=== PATIENT | male | born 1945 | race Caucasian/White ===

== ENCOUNTER 2022-07-08 06:53 | Emergency (ER) | payer OTHER, MEDICARE ==
[2022-07-08] MEDS ORDERED: Take Home: Ondansetron 4 MG Tab.DIS, 5 Tab Pack ONE (19:13)
[2022-07-08] MEDS ORDERED: Meclizine 25 MG Tab ONE (19:13)
[2022-07-08] MEDS ORDERED: LORazepam 2 MG/ML SDV ONE (19:13)
[2022-07-08] MEDS ORDERED: Ondansetron 4 MG/2 ML SDV ONE (19:13)
[2022-08-01 12:50] LABS: ANION GAP 13.4 mmol/L (5-15); CHLORIDE,CL 104 mmol/L (98-107); ESTIMATED GFR 92 mL/min (>=60); SODIUM,NA 140 mmol/L (136-145)
== END 2022-07-08 20:30 | disposition home or self-care (01) ==
LOC: VM.ED 06:53
DX: R42 Dizziness and giddiness (principal)
CPT/HCPCS: 80053; 84484; 85025; 93005; 93010; 96361; 96374; 96375; 99284; A9270; J2060; J2405; Q0162